=== PATIENT | male | born 1980 | race Asian ===

== ENCOUNTER 2017-08-25 19:59 | Emergency (ER) | payer OTHER ==
[~2017-08-25] VITALS: Ht 177.8 cm; Wt 83.9 kg
[2017-08-25] MEDS ORDERED: NKM (20:10)
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
[2017-08-25 20:30] VITALS: BP 130/84
[2017-08-25 21:45] VITALS: BP 0/0
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
== END 2017-08-25 21:45 | disposition home or self-care (01) ==
LOC: EMR 20:30
DX: S20.212A Contusion of left front wall of thorax, initial encounter (principal); V43.52XA Car driver injured in collision with other type car in traffic accident, initial encounter; Y92.410 Unspecified street and highway as the place of occurrence of the external cause
CPT/HCPCS: 71250; 99284